=== PATIENT | female | born 1995 | race Caucasian/White ===

== ENCOUNTER 2020-10-31 19:01 | Emergency (ER) | payer OTHER ==
[~2020-10-31] VITALS: Ht 170.2 cm; Wt 117.5 kg
[2020-10-31 19:08] VITALS: Ht 170.2 cm; Wt 117.5 kg
[2020-10-31] MEDS ORDERED: ACETAMINOPHEN-H1 TA1 PO (19:57)
[2020-10-31] MEDS ORDERED: IBU600 M2 PO (19:57)
[2020-10-31 20:21] VITALS: BP 124/68
== END 2020-10-31 20:21 | disposition home or self-care (01) ==
LOC: ED 19:01
DX: M54.40 Lumbago with sciatica, unspecified side (principal)
CPT/HCPCS: J1885